=== PATIENT | female | born 1945 | race Caucasian/White ===

== ENCOUNTER 2023-03-28 08:53 | Day surgery (SDC) | payer MEDICARE, OTHER, SELFPAY ==
[2023-03-28 09:44] LABS: INR 2.84; PT 30.2 Sec (11.4-14.6)
[2023-03-28 09:50] VITALS: BMI 47.6
--- NOTE | 2023-03-28 10:09 | ITS.CL.CARDI ---
Resolution Specialist - Cardioversion
Cardioversion
Procedure Report:
Date of Procedure:
Procedure: Cardioversion
Indication: Symptomatic atrial fibrillation
Performing Physician: Calvin Boo MD
Technique: The patient was brought to the holding area. Signed informed consent was obtained. A time out was called and performed. The patient was anesthetized by the anesthesia service. Anticoagulation status was reviewed and appropriate. R2 pads
were placed anteriorly and posteriorly. A 200 J synchronized biphasic shock restored normal sinus rhythm without significant bradycardia. There were no complications.
Conclusion: Uncomplicated cardioversion from atrial fibrillation to sinus rhythm.
Recommendation: Routine post cardioversion care. Continue detention anticoagulation.
== END 2023-03-28 10:54 | disposition home or self-care (01) ==
LOC: CATH 08:53
PROVIDERS: ATTENDING PHYSICIAN Internal Medicine Cardiovascular Disease; FAMILY PHYSICIAN Family Medicine; OTHER PHYSICIAN Internal Medicine Cardiovascular Disease
DX: I48.0 Paroxysmal atrial fibrillation (principal); I10 Essential (primary) hypertension; E78.2 Mixed hyperlipidemia; G47.33 Obstructive sleep apnea (adult) (pediatric); E66.9 Obesity, unspecified; Z68.42 Body mass index [BMI] 45.0-49.9, adult; Z79.01 Long term (current) use of anticoagulants
CPT/HCPCS: 85610; 92960; 93005

== ENCOUNTER 2023-05-28 09:20 | Inpatient (IN) | payer MEDICARE, OTHER, SELFPAY ==
--- NOTE | 2023-05-28 07:48 | W.PN.CARDCBS ---
Addendum entered and electronically signed by Alexander Garcia DO 05/28/23 16:47:
I saw and examined the patient.
The Physician Pediatrician's note was reviewed and I agree with the note.
Comment:
Plan:
Sotalol load as per EP staring with 120 mg BID.
Monitor QTc.
Cont coumadin. INR therapeutic
Cont tele.
Pt agreeable to proceed.
Original Note:
Today's Communication / Plan
-
Await CMP results
ECG in Afib with QTc 438 ms
Patient wants to start on the lowest dose possible. Talked about finding an effective dose that patient can tolerate.
Impression / Plan
-
PCP: Dr. Nereida Garcia
Cardiology: Dr. Emile Bacon
Impression:
Direct admission for sotalol loading 05/28/23
Persistent Afib
s/p CV 03/28/23
Chronic warfarin OAC with INRs managed by PCP
HTN
Morbid obesity
DELILAH on CPAP
Hyperlipidemia
Echo 01/15/23: EF 64%, stage II diastolic dysfunction, mild MR, mild with peak/mean 17/9 mmHg and no AI
Plan:
-Patient was seen at the cardiology office 05/01/23 and offered sotalol loading for recurrence of Afib and presents today for direct admission. Patient had a successful CV 03/28/23, but was back in Afib at office visit 05/01/23. Patient reports she is
symptomatic with fatigue. Patient was offered AAD loading, but specifically refused Tikosyn and amiodarone. Patient was agreeable to try sotalol. Patient also not interested in ablation. Paroxysmal Afib since 1997 according to records. If patient is
intolerant to sotalol then could try propafenone.
-Await labs to calculate sotalol dose. Patient would prefer lowest dose possible
-INR 2.10 today. INR was 2.08 on 05/05/23 and then 4.7 on 05/24/23. INRs managed by PCP.
-QTc 438 ms by ECG on admission
-BP controlled after she took her usual doses of Lopressor 25 mg TID and HCTZ 25 mg daily this AM.
Progress Note - Machine Carton Marker
Subjective
Date of Service: May 28, 2023
No intercurrent illnesses, no chest pain
Objective
Labs:
Hgb 13.6, WBC 7.1, Plt 223
INR 2.1
CMP pending
Vital Signs and I&O:
125/82, HR 81, RR 18, temp 98.3 degrees Fahrenheit
Physical Exam
Physical Exam
GEN: NAD. AAOx3
HEENT: EOMI, MMM, wearing glasses
LUNGS: CTA B/L, no wheezes or rales
CV: Irreg irreg, /6 syst LSB
ABD: soft, BS+, NT, ND
EXT: No edema B/L
NEURO: Gross non-focal
SKIN: Warm, dry and pink. No rash
[2023-05-28 09:38] VITALS: BMI 48.9
[2023-05-28 09:47] VITALS: BP 125/82
[2023-05-28 09:49] VITALS: BMI 48.9
[2023-05-28] MEDS: KCL PO (09:51)
[2023-05-28] MEDS: ORETIC PO (09:51)
[2023-05-28] MEDS: LOPRESSOR PO (09:51)
--- NOTE | 2023-05-28 10:05 | PTCARENOTE ---
Pt direct admit for sotolol loading by cardiology. AAO x3, oriented to unit. Able to ambulate without assistance. Education provided on unit protocols and procedures.
--- NOTE | 2023-05-28 10:42 | CM ---
Reviewed chart. Met with Miss Hill to review discharge plans. She states prior to admission she resides alone in second floor apartment with an elevator. She states prior to admission she was independent with ambulation and adls. She states she
has a CPAP Machine and no other DME in the home, She states she has a prescription plan. Medical work-up in progress. The discharge plan is to return home when medically stable.
[2023-05-28 10:44] LABS: Hematocrit 39.1 % (37.0-47.0); Hemoglobin 13.6 g/dL (12.0-16.0); Mean Corp Hgb Conc. 34.8 g/dL (33.0-37.0); Mean Corpuscular Hgb 28.3 pg (27.0-31.0); Mean Corpuscular Volume 81.5 fL (81.0-99.0); Mean Platelet Volume 10.4 fL (7.4-10.4); Platelet Count 223 10^3/uL (130-400); Red Cell Dist. Width 13.5 % (11.5-14.5); White Blood Cell Count 7.1 10^3/uL (4.8-10.8)
[2023-05-28 10:53] LABS: PT 23.4 Sec (11.4-14.6)
[2023-05-28 11:38] LABS: ALT (SGPT) 21 U/L (0-35); AST (SGOT) 31 U/L (14-36); Alkaline Phosphatase 67 U/L (38-126); Blood Urea Nitrogen 20 mg/dl (7-17); Calcium 9.5 mg/dl (8.4-10.2); Carbon Dioxide 25 mmol/L (22-30); Chloride 104 mmol/L (98-107); Estimated Creatinine Clearance 84 ml/min; Glucose 102 mg/dl (70-99); Potassium 4.2 mmol/L (3.5-5.1); Sodium 137 mmol/L (135-145); Total Bilirubin 0.5 mg/dl (0.2-1.3); Total Protein 7.1 g/dl (6.3-8.2); eGFR > 60.00
[2023-05-28 11:57] VITALS: BP 159/92
[2023-05-28] MEDS: BETAPACE 120 MG PO ×2 (12:32→23:01)
[2023-05-28 15:28] VITALS: BP 132/83
[2023-05-28] MEDS: LOPRESSOR 25 MG PO ×2 (16:57→21:51)
[2023-05-28] MEDS: COUMADIN 6.25 MG PO (17:53)
[2023-05-28 19:08] VITALS: BP 142/72
--- NOTE | 2023-05-28 19:15 | PTCARENOTE ---
report received. aaox3. vss. afib on monitor. pt updated on plan of care. will monitor.
[2023-05-28 23:01] VITALS: BP 123/86
--- NOTE | 2023-05-28 23:36 | PTCARENOTE ---
Addendum entered by Sea Skinner RN 05/29/23 01:43:
Qtc post 2nd dose-492. HR Afib 60s. bp 133/67.
Original Note:
assumed care of patient. AAOx3. ambulating independently in the room. Afib on tele 60s-70s. bp 123/86. patient states symptomatic with the afib, 'palpitations and dyspnea.' educated patient to inform RN with any new changes overnight. CPAP at
bedside. 2nd dose of Sotalol given, see mar.
[2023-05-29] VITALS (8 sets, daily range): BP systolic 96–154; BP diastolic 36–97
[2023-05-29 01:36] LABS: INR 2.21; PT 24.4 Sec (11.4-14.6)
[2023-05-29 01:49] LABS: Blood Urea Nitrogen 24 mg/dl (7-17); Calcium 9.1 mg/dl (8.4-10.2); Carbon Dioxide 28 mmol/L (22-30); Chloride 103 mmol/L (98-107); Estimated Creatinine Clearance 84 ml/min; Glucose 103 mg/dl (70-99); Potassium 3.8 mmol/L (3.5-5.1); Sodium 136 mmol/L (135-145); eGFR > 60.00
[2023-05-29] MEDS: LOPRESSOR 25 MG PO ×3 (08:36→23:01)
[2023-05-29] MEDS: ORETIC 25 MG PO (08:37)
[2023-05-29] MEDS: KCL 20 MEQ PO (08:37)
--- NOTE | 2023-05-29 09:56 | PTCARENOTE ---
Assumed care of pt from night RN. Pt received awake and alert, Ox3. CM shows AF 60's, POX 96% on RA. Pt receiving 3d dose of Sotalol. She offers no c/o pain or discomfort, ambulating freely in room.
[2023-05-29] MEDS: BETAPACE 80 MG PO ×2 (10:06→21:00)
--- NOTE | 2023-05-29 11:51 | CM ---
CM following for DC planning needs.
Reviewed initial assessment. Pt. resides alone in an apartment. Functionally, patient is indep. at baseline w/ ADLs, mobility without the use of any assisted device.
Anticipated DC plan is for home, no needs.
CM to follow.
--- NOTE | 2023-05-29 12:11 | W.PN.CARDCBS ---
Addendum entered and electronically signed by Candace Woodson MD 05/29/23 14:38:
I saw and examined the patient.
The Irrigator's note was reviewed and I agree with the note.
Comment: Overall doing well. No major complaints.
Vitals an LAbwork reviewed along with ECGs. Exam notable for morbidly obese female, irregularly irregular, Normal S1 and S2. No m/r/g, abd obese, soft, NT, ND +warm ext.
Reccs:
1. ECG with QTC prolonging with sotalol 120mg so after discussion with EP colleagues plan to decrease dose to sotalol 80mg bid and monitor QTc closely. In Afib on tele still. Cont with low dose lopressor.
2. Cont with full AC for stroke prevention.
3. NPO after MN for DCCV tomorrow AM.
Candace Woodson MD, [facility], [facility]
Original Note:
Today's Communication / Plan
-
CV in AM
Follow HR and reduce Lopressor 25 mg TID dose as needed
Reduced sotalol to 80 mg BID and following QTc
Impression / Plan
-
PCP: Dr. Nereida Garcia
Cardiology: Dr. Emile Bacon
Impression:
Direct admission for sotalol loading 05/28/23
Persistent Afib
s/p CV 03/28/23
Chronic warfarin OAC with INRs managed by PCP
HTN
Morbid obesity
DELILAH on CPAP
Hyperlipidemia
Echo 01/15/23: EF 64%, stage II diastolic dysfunction, mild MR, mild with peak/mean 17/9 mmHg and no AI
Plan:
-QTc prolonged to 492 ms after 2nd dose of sotalol 120 mg BID was given 05/28/23 PM. Reviewed with EP and will decreased to sotalol 80 mg BID starting with 3rd dose which is scheduled to be given 05/29/23 AM. Reviewed in detail with patient.
-Remains in Afib and plan is for a CV 4/4/24.
-INRs managed by PCP. INR was 2.08 on 05/05/23, 4.7 on 05/24/23, 2.10 on 05/28/23 and 2.21 on 05/29/23
-Outpatient dose of Lopressor 25 mg TID has been continued, will need to follow HR and might need to lower dose once back in SR.
-Outpatient dose of HCTZ 25 mg daily has also been continued.
HPI: Patient was seen at the cardiology office 05/01/23 and offered sotalol loading for recurrence of Afib and presents today for direct admission. Patient had a successful CV 03/28/23, but was back in Afib at office visit 05/01/23. Patient reports she is
symptomatic with fatigue. Patient was offered AAD loading, but specifically refused Tikosyn and amiodarone. Patient was agreeable to try sotalol. Patient also not interested in ablation. Paroxysmal Afib since 1997 according to records. If patient is
intolerant to sotalol then could try propafenone.
Progress Note - Voting Machine Repairer
Subjective
Date of Service: May 29, 2023
She feels well
Objective
Labs:
05/28/23 10:31
05/29/23 01:02
Labs
Hgb 13.6 g/dL (12.0-16.0) 05/28/23 10:31
Hct 39.1 % (37.0-47.0) 05/28/23 10:31
Plt Count 223 10^3/uL (130-400) 05/28/23 10:31
PT 24.4 Sec (11.4-14.6) H 05/29/23 01:02
INR 2.21 05/29/23 01:02
Sodium 136 mmol/L (135-145) 05/29/23 01:02
Potassium 3.8 mmol/L (3.5-5.1) 05/29/23 01:02
BUN 24 mg/dl (7-17) H 05/29/23 01:02
Creatinine 0.6 mg/dL (0.6-1.0) 05/29/23 01:02
Glucose 103 mg/dl (70-99) H 05/29/23 01:02
Vital Signs and I&O:
Vital Signs
Temp Pulse Resp BP Pulse Ox
97.6 F 73 20 117/70 96
05/29/23 11:44 05/29/23 12:00 05/29/23 11:44 05/29/23 11:44 05/29/23 11:44
Vital Signs
Temp Pulse Resp BP Pulse Ox
97.6 F 73 20 117/70 96
05/29/23 11:44 05/29/23 12:00 05/29/23 11:44 05/29/23 11:44 05/29/23 11:44
Physical Exam
Physical Exam
GEN: NAD. AAOx3
HEENT: EOMI, wearing glasses
LUNGS: No audibel wheeze
CV: Afib on tele
ABD: ND
EXT: No edema B/L
NEURO: Gross non-focal
SKIN: No rash
--- NOTE | 2023-05-29 12:15 | PTCARENOTE ---
QTc 2 hr after Sotalol dose is 483.
[2023-05-29] MEDS: COUMADIN 6.25 MG PO (17:39)
[2023-05-29] MEDS: ProAIR HFA INHALER 1 PUFF INH (22:16)
--- NOTE | 2023-05-29 23:45 | PTCARENOTE ---
QTc post 4th dose of Sotalol- 479.
patient ambulating independently in room. denies any pain. palpitations and feeling of fatigue-baseline per patient r/t Afib. Afib on tele 70s. bp stable. CPAP HS. patient states feeling tightness in chest and requesting inhaler. updated respiratory
therapist. Albuterol PRN given with relief per patient. Reviewed plan of care with patient and verbalized understanding. NPO at midnight for possible CV in AM. call aguayo in reach. calls appropriately.
[2023-05-30 04:30] VITALS: BP 133/87
[2023-05-30 04:54] LABS: INR 2.36; PT 26.1 Sec (11.4-14.6)
[2023-05-30 05:08] LABS: Blood Urea Nitrogen 27 mg/dl (7-17); Calcium 8.9 mg/dl (8.4-10.2); Carbon Dioxide 29 mmol/L (22-30); Chloride 103 mmol/L (98-107); Estimated Creatinine Clearance 72 ml/min; Glucose 108 mg/dl (70-99); Potassium 3.8 mmol/L (3.5-5.1); Sodium 137 mmol/L (135-145); eGFR > 60.00
[2023-05-30 07:43] VITALS: BP 135/82
[2023-05-30] MEDS: LOPRESSOR 25 MG PO (08:08)
[2023-05-30] MEDS: BETAPACE 80 MG PO (08:08)
[2023-05-30 10:33] VITALS: BP 130/63
[2023-05-30] MEDS: ORETIC 25 MG PO (10:34)
[2023-05-30] MEDS: KCL 20 MEQ PO (10:34)
--- NOTE | 2023-05-30 11:03 | PTCARENOTE ---
Pt received from night supervisor RN. AAOx3. Afib on wine sales representative. 5th dose of Sotalol given. Pt s/p cardioversion. Now in sinus taran on wine sales representative with HRs in 50s. EKG confirmed. VSS. Assessment documented. Plan for discharge home later today.
--- NOTE | 2023-05-30 11:09 | W.PN.CARDCBS ---
Addendum entered and electronically signed by Nahomi Saez PA-C 05/30/23 16:33:
[id number]
Addendum entered and electronically signed by Cortney Pyle DO 05/30/23 13:00:
I saw and examined the patient.
The Splicer Machine Operator's note was reviewed and I agree with the note.
Comment: Seen and examined prior to DC cardioversion. Patient offers no complaints. Reviewed cardioversion procedure; no absolute contraindications. She has had no interruption of anticoagulation.
GEN: NAD. AAOx3
LUNGS: Bronchovesicular breath sounds, clear bilaterally
CV: Irregularly irregular. Positive S1-S2. 2/6 SM
ABD: ND positive bowel sounds
EXT: No edema B/L
Plan:
Admitted for elective sotalol initiation for persistent atrial fibrillation for DC cardioversion today
-Tolerating sotalol with acceptable QTc interval
-Continue uninterrupted anticoagulation with warfarin managed by PCP; INR 05/30/2023 2.36
-Continue sotalol 80 mg twice daily
-Reduce Lopressor to 12-1/2 mg twice daily
-Continue use of CPAP
-Anticipate discharge home following cardioversion with outpatient follow-up with Dr. Bacon
Original Note:
Today's Communication / Plan
-
Bradycardic back in SR, will cut Lopressor from 25 mg TID to 12.5 mg BID
Cont warfarin at 6.25 mg daily, INRs therapeutic throughout admission and managed by PCP as an outpatient
D/C to home later today
Impression / Plan
-
PCP: Dr. Nereida Garcia
Cardiology: Dr. Emile Bacon
Impression:
Direct admission for sotalol loading 05/28/23
Persistent Afib
s/p CV 03/28/23
Chronic warfarin OAC with INRs managed by PCP
HTN
Morbid obesity
DELILAH on CPAP
Hyperlipidemia
Echo 01/15/23: EF 64%, stage II diastolic dysfunction, mild MR, mild with peak/mean 17/9 mmHg and no AI
Plan:
-QTc stable at 453 ms now that patient is back in SR after CV 05/30/23. Also received 5th dose of sotalol 05/30/23 AM.
-Will decrease Lopressor to 12.5 mg BID. Patient was taking Lopressor 25 mg TID prior to admission.
-INRs managed by PCP. INR was 2.08 on 05/05/23, 4.7 on 05/24/23, 2.10 on 05/28/23, 2.21 on 05/29/23 and 2.36 on 05/30/23. Will ask patient to check INR weekly for the 4 weeks following CV.
-Outpatient dose of HCTZ 25 mg daily has also been continued.
-Labs stable throughout admission
-D/C to home 05/30/23
HPI: Patient was seen at the cardiology office 05/01/23 and offered sotalol loading for recurrence of Afib and presents today for direct admission. Patient had a successful CV 03/28/23, but was back in Afib at office visit 05/01/23. Patient reports she is
symptomatic with fatigue. Patient was offered AAD loading, but specifically refused Tikosyn and amiodarone. Patient was agreeable to try sotalol. Patient also not interested in ablation. Paroxysmal Afib since 1997 according to records. If patient is
intolerant to sotalol then could try propafenone.
Progress Note - Mock Up Builder
Subjective
Date of Service: May 30, 2023
She feels well
Objective
Labs:
05/28/23 10:31
05/30/23 04:30
Labs
Hgb 13.6 g/dL (12.0-16.0) 05/28/23 10:31
Hct 39.1 % (37.0-47.0) 05/28/23 10:31
Plt Count 223 10^3/uL (130-400) 05/28/23 10:31
PT 26.1 Sec (11.4-14.6) H 05/30/23 04:30
INR 2.36 05/30/23 04:30
Sodium 137 mmol/L (135-145) 05/30/23 04:30
Potassium 3.8 mmol/L (3.5-5.1) 05/30/23 04:30
BUN 27 mg/dl (7-17) H 05/30/23 04:30
Creatinine 0.7 mg/dL (0.6-1.0) 05/30/23 04:30
Glucose 108 mg/dl (70-99) H 05/30/23 04:30
Vital Signs and I&O:
Vital Signs
Temp Pulse Resp BP Pulse Ox
97.6 F 49 16 130/63 95
05/30/23 07:41 05/30/23 10:33 05/30/23 10:33 05/30/23 10:34 05/30/23 10:33
Vital Signs
Temp Pulse Resp BP Pulse Ox
97.6 F 49 16 130/63 95
05/30/23 07:41 05/30/23 10:33 05/30/23 10:33 05/30/23 10:34 05/30/23 10:33
Intake & Output
05/28/23 05/29/23 05/30/23 05/31/23
06:59 06:59 06:59 06:59
Intake Total 450 / 450
Balance 450 / 450
Physical Exam
Physical Exam
GEN: NAD. AAOx3
HEENT: EOMI, wearing glasses
LUNGS: No audible wheeze
CV: Sinus bradycardia on tele
ABD: ND
EXT: No edema B/L
NEURO: Gross non-focal
SKIN: No rash
--- NOTE | 2023-05-30 11:19 | W.DS.TRANS ---
DC Summary - Commercial Agent
-
Discharge Instructions:
Discharge Diagnosis/Procedures Sotalol loading for paroxysmal to persistent
atrial fibrillation, successful cardioversion
06/18
Diet Low Fat,Low Sodium
Activity As tolerated
Driving Restrictions No driving for 24 hours
Bathing Restrictions None
Blood Work -Check INR weekly for the next 4 weeks to ensure
INR stays therapeutic at 2-3. After 4 weeks you
can return to your usual monitoring schedule
with your primary care doctor
Instructions:
Stand-Alone Forms: DC Instructions- Cath/EP Lab
Changes to Home Medications: Yes
Discharge Medications:
DC Medications w/original date entered in [facility]
hydrochlorothiazide 25 mg tablet 25 mg PO DAILY 08/14/13
diphenhydramine HCl 12.5 mg oral strips 12.5 mg PO PRN PRN allergy 08/26/14
potassium chloride 20 mEq tablet,extended release(part/cryst) (Klor-Con M) 20 meq PO DAILY 08/11/20
B-complex with vitamin C 1 cap PO DAILY 12/23/20
cholecalciferol (vitamin D3) 50 mcg (2,000 unit) tablet 1,000 units PO DAILY 12/23/20
albuterol sulfate 90 mcg/actuation aerosol inhaler (ProAir HFA) 1 puff inhalation Q4H PRN SOB 03/28/23
metoprolol tartrate 25 mg tablet 12.5 mg (1/2 x 25 mg) PO BID Arrhythmia #60 tabs 05/30/23
sotalol 80 mg tablet 80 mg PO BID Arrhythmia #60 tabs 05/30/23
warfarin 2.5 mg tablet 6.25 mg (2.5 x 2.5 mg) PO DAILY #0 tabs 05/30/23
Home Medication Changes
New to sotalol
Lopressor dose decreased
Pending Results: No
--- NOTE | 2023-05-30 12:32 | CM ---
CM following for DC planning needs.
Met w/ patient at bedside. She is anticipating DC today. There are no concerns or needs identified.
Plan is for home, no needs.
== END 2023-05-30 12:23 | disposition home or self-care (01) | DRG 309 ==
LOC: IVU 09:20
PROVIDERS: Internal Medicine Cardiovascular Disease; Physician Assistant Medical; ADMITTING PHYSICIAN Nuclear Medicine Nuclear Cardiology; FAMILY PHYSICIAN Family Medicine
PROC: 5A2204Z Restoration of Cardiac Rhythm, Single (ICD-10-PCS; 2023-05-30)
DX: I48.19 Other persistent atrial fibrillation (principal); Z68.42 Body mass index [BMI] 45.0-49.9, adult; Z79.01 Long term (current) use of anticoagulants; I10 Essential (primary) hypertension; E66.01 Morbid (severe) obesity due to excess calories; G47.33 Obstructive sleep apnea (adult) (pediatric); E78.5 Hyperlipidemia, unspecified
CPT/HCPCS: 80048; 80053; 83735; 85027; 85610; 92960; 93005; 94640

== ENCOUNTER → 2023-12-23 07:34 | Outpatient (REF) | payer MEDICARE, OTHER, SELFPAY | LOC: RAD 07:34 | PROVIDERS: ATTENDING PHYSICIAN Internal Medicine Gastroenterology; FAMILY PHYSICIAN Family Medicine | DX: R13.19 Other dysphagia (principal) | CPT/HCPCS: 74221; 76700 ==

== ENCOUNTER → 2024-10-23 10:25 | Outpatient (REF) | payer MEDICARE, OTHER, SELFPAY | LOC: SDSPAT 10:25 | PROVIDERS: ATTENDING PHYSICIAN Internal Medicine; FAMILY PHYSICIAN Family Medicine; OTHER PHYSICIAN Internal Medicine Cardiovascular Disease | DX: I48.0 Paroxysmal atrial fibrillation (principal) | CPT/HCPCS: 93005 ==

== ENCOUNTER 2024-10-27 09:46 | Day surgery (SDC) | payer MEDICARE, OTHER, SELFPAY ==
[2024-10-23 11:00] VITALS: BMI 44.6
[2024-10-27 12:09] LABS: INR 2.65; PT 28.2 Sec (11.4-14.6)
== END 2024-10-27 13:10 | disposition home or self-care (01) ==
LOC: CATH 09:46
PROVIDERS: ATTENDING PHYSICIAN Internal Medicine; FAMILY PHYSICIAN Family Medicine; OTHER PHYSICIAN Internal Medicine Cardiovascular Disease
DX: I48.0 Paroxysmal atrial fibrillation (principal); E66.01 Morbid (severe) obesity due to excess calories; E78.5 Hyperlipidemia, unspecified; G47.33 Obstructive sleep apnea (adult) (pediatric); I10 Essential (primary) hypertension; J45.909 Unspecified asthma, uncomplicated; K76.0 Fatty (change of) liver, not elsewhere classified; M10.9 Gout, unspecified; Z68.41 Body mass index [BMI] 40.0-44.9, adult; Z79.01 Long term (current) use of anticoagulants; Z79.899 Other long term (current) drug therapy; Z86.0100 Personal history of colon polyps, unspecified; Z88.0 Allergy status to penicillin; Z88.1 Allergy status to other antibiotic agents; Z88.2 Allergy status to sulfonamides; Z88.6 Allergy status to analgesic agent; Z90.49 Acquired absence of other specified parts of digestive tract; Z90.710 Acquired absence of both cervix and uterus; Z90.722 Acquired absence of ovaries, bilateral
CPT/HCPCS: 85610; 92960; 93005

== ENCOUNTER 2024-11-06 09:10 | Day surgery (SDC) | payer MEDICARE, OTHER, SELFPAY ==
--- NOTE | 2024-11-09 10:54 | CM ---
Reviewed chart.. Met with Mrs. Hill to review discharge plans. She states prior to admission she resides with her spouse in a two story home with four steps to enter. She states she has a first floor set-up. She states prior to admission she was
independent with ambulation and adls. She states she has a prescription plan and uses [facility]. Telephone call to Anders Gerard to check on co-pay for Brilinta 90 mg po bid. Her co-pay for Brilinta would be $45.00 a month and the generic
Ticagrelor 90 mg po bid is $5.00 a month. Telephone call to her [facility] to check if they have Brilinta in stock. Brilinta 90 mg is in the stock. [facility] does not have Ticagrelor in stock. She is agreeable to the co-pay for Brilinta.
Medical work-up in progress. The discharge plan is to return home with her spouse when medically stable.
== END 2024-11-06 12:30 | disposition home or self-care (01) ==
LOC: CATH 09:10
PROVIDERS: ATTENDING PHYSICIAN Internal Medicine; FAMILY PHYSICIAN Family Medicine; OTHER PHYSICIAN Internal Medicine Cardiovascular Disease
DX: I48.0 Paroxysmal atrial fibrillation (principal); Z79.01 Long term (current) use of anticoagulants; I10 Essential (primary) hypertension; E78.5 Hyperlipidemia, unspecified; G47.33 Obstructive sleep apnea (adult) (pediatric)
CPT/HCPCS: 92960; 93005